=== PATIENT | female | born 1950 | race American Indian/Alaskan Native ===

== ENCOUNTER 2016-11-13 16:38 | Emergency (ER) | payer MEDICARE ==
[2016-11-13 16:57] VITALS: BP 174/98
[2016-11-13 17:27] LABS: Basophils % (Auto) 0.1 % (0.0-1.8); Eosinophils % (Auto) 0.3 % (0.0-4.3); Hemoglobin 13.1 gm/dl (10.1-14.3); Mean Corpuscular HGB Conc 35 % (30-34); Mean Corpuscular Hemoglobin 30 pg (28-32); Mean Corpuscular Volume 86 fl (79-97); Platelet Count 268 K/mm3 (140-440); Red Blood Count 4.42 M/mm3 (3.65-5.03); Red Cell Distribution Width 13.8 % (13.2-15.2)
[2016-11-13 18:01] LABS: Anion Gap 22 mmol/L; Blood Urea Nitrogen 21 mg/dL (7-17); Calcium 9.8 mg/dL (8.4-10.2); Carbon Dioxide 23 mmol/L (22-30); Chloride 99.8 mmol/L (98-107); Glucose 128 mg/dL (65-100); Potassium 3.3 mmol/L (3.6-5.0); Sodium 141 mmol/L (137-145)
== END 2016-11-13 21:50 | disposition left against medical advice (07) ==
LOC: ED 16:38
DX: R00.2 Palpitations (principal); Z53.21 Procedure and treatment not carried out due to patient leaving prior to being seen by health care provider
CPT/HCPCS: 36415; 80048; 84484; 85025; 93005; 93010